=== PATIENT | male | born 1985 | race Caucasian/White ===

== ENCOUNTER 2019-10-20 11:25 | Emergency (ER) | payer MEDICAID, OTHER ==
[~2019-10-20] VITALS: Ht 170.2 cm; Wt 75.0 kg
[2019-10-20] MEDS ORDERED: ACETAMINOPHEN 325MG TABLET PO ONE (12:00)
[2019-10-20] MEDS ORDERED: KETOROLAC 30MG/ML VIAL IM ONE (12:45)
[2019-10-20] MEDS ORDERED: MORPHINE SULFATE 2 MG/ML CPJ (NOT FOR IM USE) IV ONE ×2 (12:45→13:00)
[2019-10-20 13:58] VITALS: BP 116/66
== END 2019-10-20 14:01 | disposition home or self-care (01) ==
LOC: ER 11:42 → EDBD 11:42 → ER 14:01
DX: S06.9X9A Unspecified intracranial injury with loss of consciousness of unspecified duration, initial encounter (principal); F07.81 Postconcussional syndrome; M54.2 Cervicalgia; F43.10 Post-traumatic stress disorder, unspecified; X58.XXXA Exposure to other specified factors, initial encounter; Y93.89 Activity, other specified; Y92.89 Other specified places as the place of occurrence of the external cause; Y99.8 Other external cause status
CPT/HCPCS: 70450; 72125; 96372; 96374; 99284; J1885; J2270